=== PATIENT | female | born 1950 | race Two or more races ===

== ENCOUNTER 2023-06-08 02:10 | Emergency (ER) | payer OTHER ==
[~2023-06-08] VITALS: Ht 160 cm; Wt 56.7 kg
[~2023-06-08 02:10] MED LIST: CEFUROXIME250 MG PO; NORVASC10 MG; PAXIL10 MG/5 ML PO; SYNTHROID50 MCG
== END 2023-06-08 04:05 | disposition home or self-care (01) ==
LOC: ER 02:10
DX: F41.1 Generalized anxiety disorder (principal); F41.0 Panic disorder [episodic paroxysmal anxiety]
CPT/HCPCS: 93005; 96372; 99284; J3490

== ENCOUNTER 2023-11-07 09:33 | Emergency (ER) | payer OTHER ==
[~2023-11-07] VITALS: Ht 154.9 cm; Wt 51.7 kg
[2023-11-07 11:25] LABS: HEMATOCRIT 34.8 % (36.0-45.00); HEMOGLOBIN 11.6 g/dL (12.0-15.00); MEAN CELL VOLUME 89.2 fL (80.00-100.00); MEAN CORPUSCULAR HEMOGLOBIN 29.9 pg (27.00-32.0); MEAN CORPUSCULAR HGB CONC 33.5 g/dl (32.0-36.0); PLATELET COUNT 637 K/uL (150-450); RED CELL DISTRIBUTION WIDTH 15.2 % (11.5-14.5)
== END 2023-11-07 13:00 | disposition home or self-care (01) ==
LOC: ER 09:34
PROVIDERS: General Practice
DX: R05.9 Cough, unspecified (principal); Z91.013 Allergy to seafood
CPT/HCPCS: 36415; 71046; 96372; 99284; J0696

== ENCOUNTER 2025-03-30 08:13 | Emergency (ER) | payer OTHER ==
[~2025-03-30] VITALS: Ht 154.9 cm; Wt 46.7 kg
[2025-03-30] MEDS ORDERED: MECLIZINE HCL 25 MG TABLET PO STA (08:59)
[2025-03-30] MEDS ORDERED: MECLIZINE HCL 25 MG TABLET PO ONE (09:03)
[2025-03-30 10:06] LABS: BASO % 0.4 % (0.1-1.2); EOS # 0.09 (0.04-0.54); EOS % 0.9 % (0.7-7.0); HEMATOCRIT 39.4 % (34.1-44.9); HEMOGLOBIN 12.1 g/dL (11.2-15.7); LYMPH # 1.26 (1.18-3.74); LYMPH % 12.4 % (19.3-53.1); MEAN CORPUSCULAR HEMOGLOBIN 29.1 pg (25.6-32.2); MONO % 5.9 % (4.7-12.5); NEUT # 8.13 (1.56-6.13); NEUT % 80.2 % (34.0-71.1); PLATELET COUNT 581 K/uL (163-369); RED BLOOD COUNT 4.16 M/uL (3.93-5.22); RED CELL DISTRIBUTION WIDTH 15.4 % (11.6-14.4)
[2025-03-30 10:42] LABS: CALCIUM 9.4 mg/dL (8.5-10.1); CREATININE SERUM 0.7 mg/dL (0.55-1.02); GFR 81.36; POTASSIUM 4.58 mEq/L (3.5-5.1)
== END 2025-03-30 10:52 | disposition home or self-care (01) ==
LOC: ER 08:13
PROVIDERS: General Practice
DX: R42 Dizziness and giddiness (principal); Z91.013 Allergy to seafood